=== PATIENT | female | born 1985 | race Caucasian/White ===

== ENCOUNTER 2018-01-18 10:46 | Emergency (ER) | payer SELFPAY ==
[2018-01-18] MEDS ORDERED: ONDANSETRON 4 MG TAB.RAPDIS PO ONE (11:33)
[2018-01-18] MEDS ORDERED: MORPHINE SULFATE 10 MG/ML INJ IM ONE (11:33)
--- NOTE | 2018-01-18 11:35 | ER Document Report ---
ED General - General Chief Complaint: Flank Pain Stated Complaint: BACK PAIN Time Seen by Provider: 01/18/18 10:58 Mode of Arrival: Ambulatory Information source: Patient, [facility] Records Notes: 32-year-old female with migraine headaches, IBS presents with complaint of right flank pain and dysuria that started 2 days prior to arrival. Patient describes the flank pain as a dull aching pain with intermittent worsening of pain. Patient has had associated nausea without vomiting. Patient admits to dysuria but denies hematuria, abdominal pain, fever, chance of , vaginal discharge. Patient does report that she had a history of pyelonephritis while . TRAVEL OUTSIDE OF THE [place] IN LAST 30 DAYS: No - HPI Onset: Other Onset/Duration: Gradual, Intermittent Quality of pain: Achy Severity: Mild Pain Level: 2 Associated symptoms: Chills, Nausea, Sweating. denies: Diarrhea, Fever, Vomiting, Shortness of breath Exacerbated by: Denies Relieved by: Denies Similar symptoms previously: Yes Recently seen / treated by doctor: No - Related Data Allergies/Adverse Reactions: divalproex sodium [From Depakote] Allergy (Verified 01/18/18 10:48) Past Medical History - General Information source: Patient, [facility] Records - Social History Smoking Status: Current Every Day Smoker Cigarette use (# per day): Yes - 10 Smoking Education Provided: Yes - Smoking cessation counseling was provided for 4 minutes at the bedside Frequency of alcohol use: Occasional Drug Abuse: Marijuana Lives with: Spouse/Significant other Family History: Reviewed & Not Pertinent Patient has suicidal ideation: No Patient has homicidal ideation: No Neurological Medical History: Reports: Hx Migraine Renal/ Medical History: Denies: Hx Peritoneal Dialysis Past Surgical History: Reports: Hx Section - x3, Hx Cholecystectomy, Hx Tonsillectomy Review of Systems - Review of Systems Constitutional: Chills EENT: denies: Blurred vision, Throat pain Cardiovascular: denies: Chest pain, Palpitations, Dizziness Respiratory: denies: Cough, Short of breath Gastrointestinal: Nausea. denies: Abdominal pain, Vomiting Genitourinary: Dysuria, Flank pain Female Genitourinary: denies: Vaginal discharge Musculoskeletal: Back pain Skin: denies: Rash Hematologic/Lymphatic: denies: Easy bruising Neurological/Psychological: denies: Confusion, Headaches -: Yes All other systems reviewed and negative Physical Exam - Vital signs Vitals: Temp Pulse Resp BP Pulse Ox 98.6 F 88 16 118/70 100 01/18/18 10:59 01/18/18 10:59 01/18/18 10:59 01/18/18 10:59 01/18/18 10:59 Interpretation: Normal. No: Hypotensive, Febrile - Notes Notes: PHYSICAL EXAMINATION: GENERAL: Well-appearing, well-nourished and in no acute distress. HEAD: Atraumatic, normocephalic. EYES: Pupils equal round and reactive to light, extraocular movements intact, conjunctiva are normal. ENT: Nares patent, oropharynx clear without exudates. Moist mucous membranes. NECK: Normal range of motion, supple without lymphadenopathy LUNGS: Breath sounds clear to auscultation bilaterally and equal. No wheezes rales or rhonchi. HEART: Regular rate and rhythm without murmurs ABDOMEN: Soft, nontender, nondistended abdomen. No guarding, no rebound. No masses appreciated. Female : deferred Musculoskeletal: Normal range of motion, no pitting or edema. No cyanosis. Right CVA tenderness NEUROLOGICAL: Cranial nerves grossly intact. Normal speech, normal gait. Normal sensory, motor exams PSYCH: Normal mood, normal affect. SKIN: Warm, Dry, normal turgor, no rashes or lesions noted. Course - Re-evaluation Re-evalutation: 01/18/18 12:26 Laboratory 01/18/18 01/18/18 01/18/18 10:48 10:48 10:48 WBC 5.7 RBC 4.45 Hgb 14.7 Hct 42.3 MCV 95 MCH 33.0 MCHC 34.8 RDW 11.6 Plt Count 213 Seg Neutrophils % 60.6 Lymphocytes % 29.4 Monocytes % 9.2 Eosinophils % 0.3 Basophils % 0.5 Absolute Neutrophils 3.5 Absolute Lymphocytes 1.7 Absolute Monocytes 0.5 Absolute Eosinophils 0.0 Absolute Basophils 0.0 Sodium 140.7 Potassium 4.2 Chloride 107 Carbon Dioxide 25 Anion Gap 9 BUN 12 Creatinine 0.75 Est GFR ( Amer) > 60 Est GFR (Non-Af Amer) > 60 Glucose 104 Calcium 9.7 Total Bilirubin 1.4 H Direct Bilirubin 0.5 H Neonat Total Bilirubin Not Reportable Neonat Direct Bilirubin Not Reportable Neonat Indirect Bili Not Reportable AST 12 L ALT 15 Alkaline Phosphatase 45 Total Protein 7.4 Albumin 4.6 Urine Color STRAW Urine Appearance CLEAR Urine pH 5.0 Ur Specific Harrod 1.005 Urine Protein NEGATIVE Urine Glucose (UA) NEGATIVE Urine Ketones NEGATIVE Urine Blood NEGATIVE Urine Nitrite NEGATIVE Urine Bilirubin NEGATIVE Urine Urobilinogen NEGATIVE Ur Leukocyte Esterase NEGATIVE Urine WBC (Auto) 0 Urine Bacteria (Auto) TRACE Squamous Epi Cells Auto 1 Urine Mucus (Auto) RARE Urine Ascorbic Acid NEGATIVE Urine HCG, Qual NEGATIVE Abdomen/Pelvis CT 01/18/18 00:00 IMPRESSION: Wedge-shaped areas of hypoattenuation within the kidneys, concerning for pyelonephritis. Correlate with patient's urinalysis. 32-year-old female with migraine headaches, IBS presents with complaint of right flank pain and dysuria that started 2 days prior to arrival. Patient describes the flank pain as a dull aching pain with intermittent worsening of pain. Patient has had associated nausea without vomiting. Patient admits to dysuria but denies hematuria, abdominal pain, fever, chance of , vaginal discharge. Patient does report that she had a history of pyelonephritis while . Vital signs reviewed upon arrival and patient is afebrile, normotensive and not tachycardic. She does not appear toxic or dehydrated. Exam is significant for right CVA tenderness. CBC, CMP, UA are unremarkable. CT with IV and p.o. contrast was obtained and read as concerning for bilateral pyelonephritis with recommendation to correlate with the patient' s urinalysis which is without blood, without leuk esterase or WBCs. Patient has not had any fever, nausea, vomiting which I would expect to find in a patient with pyelonephritis. Because of the patient's history of interstitial cystitis I have sent a urine culture and started her on Keflex. 01/18/18 12:32 Patient reevaluated after receiving IM morphine, p.o. Zofran. She is still in significant pain and states now she has right upper quadrant pain. Patient does not have a gallbladder. Lipase added. CT of the abdomen and pelvis with IV and p.o. contrast ordered. On reevaluation patient resting more comfortably. Patient was evaluated and treated as appropriate for the patient' s presenting symptoms and complaint, with consideration of any critical or life threatening conditions that may be associated with their obtained history and exam as noted above. All results were discussed with patient and patient provided a copy of her CAT scan report. Patient provided the opportunity to ask questions, and express concerns. Patient was educated on treatments based on their presumed diagnosis as noted above. At this time we will discharge the patient with return precautions and follow-up recommendations. Verbal discharge instructions given a the bedside. Medication warnings reviewed. Patient is in agreement with this plan and has verbalized understanding of return precautions. After careful consideration I feel that that patient can be safely discharged from the emergency department, they were advised to followup with a primary care physician in 2-3 days. Dictation on this chart was performed using voice recognition software and may result in unintended grammatical, spelling, syntax or errors. 01/19/18 09:09 - Vital Signs Vital signs: Temp Pulse Resp BP Pulse Ox 97.8 F 69 16 103/52 L 99 01/18/18 17:03 01/18/18 17:03 01/18/18 17:03 01/18/18 17:03 01/18/18 17:03 - Laboratory Result Diagrams: 01/18/18 10:48 01/18/18 10:48 Laboratory results interpreted by me: 01/18/18 10:48 Total Bilirubin 1.4 H Direct Bilirubin 0.5 H AST 12 L - Diagnostic Test Radiology reviewed: Image reviewed, Reports reviewed Discharge - Discharge Clinical Impression: Right flank pain, Dysuria, Interstitial cystitis Condition: Good Disposition: HOME, SELF-CARE Instructions: Flank Pain ([facility]), Pain Medication Injection ([facility]) Additional Instructions: Your urinalysis did not show any evidence of infection. Your lab work was all within normal limits. Your CAT scan suggests possible pyelonephritis but without a urinary tract infection, elevation in your white count, fever I feel this is unlikely. I have sent your urine for culture and this will result in a few days. I will start you on Keflex due to your interstitial cystitis and significant discomfort. Follow up with your [id number] hours for further care or return to the ED IMMEDIATELY if symptoms worsen or you have any concerns. If you cannot afford to follow up with your primary care physician a list of low cost clinics have been provided at the end of your discharge papers as well. Most prescribed medications have multiple side effects. The safest thing to do is when filling your prescription speak to your pharmacist regarding possible interactions with your normal home medications and over the counter medications such as Ibuprofen, Tylenol, Benadryl. If you experience any symptoms that cause you discomfort or concern you should discontinue the medication immediately and return to the emergency room or call your primary care physician. Prescriptions: Cephalexin Monohydrate [Keflex 500 mg Capsule] 500 mg PO BID 5 Days #10 capsule Hydrocodone/Acetaminophen [[place] 5-325 mg Tablet] 1 tab PO Q6H #10 tablet
[2018-01-18 11:52] LABS: ABSOLUTE LYMPHOCYTES (AUTO) 1.7 10^3/uL (0.5-4.7); ABSOLUTE MONOCYTES (AUTO) 0.5 10^3/uL (0.1-1.4); ABSOLUTE NEUT (AUTO) 3.5 10^3/uL (1.7-8.2); BASOPHILS % (AUTO) 0.5 % (0-2); EOSINOPHILS % (AUTO) 0.3 % (0-6); HEMATOCRIT 42.3 % (36.0-47.0); HEMOGLOBIN 14.7 g/dL (12.0-15.5); LYMPHOCYTES % (AUTO) 29.4 % (13-45); MEAN CORPUSCULAR HGB CONC 34.8 g/dL (32.0-36.0); MEAN CORPUSCULAR VOLUME 95 fl (80-97); MONOCYTES % (AUTO) 9.2 % (3-13); PLATELET COUNT 213 10^3/uL (150-450); RED BLOOD COUNT 4.45 10^6/uL (3.72-5.28); RED CELL DISTRIBUTION WIDTH 11.6 % (11.5-14.0); SEGMENTED NEUTROPHILS % (AUTO) 60.6 % (42-78); TOTAL CELLS COUNTED % (AUTO) 100 %; WHITE BLOOD COUNT 5.7 10^3/uL (4.0-10.5)
[2018-01-18 12:02] LABS: APPEARANCE,URINE CLEAR; BILIRUBIN,URINE NEGATIVE (NEGATIVE); COLOR,URINE STRAW; GLUCOSE, URINE NEGATIVE (NEGATIVE); KETONES,URINE NEGATIVE (NEGATIVE); LEUKOCYTE ESTERASE,URINE NEGATIVE (NEGATIVE); NITRITE,URINE NEGATIVE (NEGATIVE); PROTEIN,URINE NEGATIVE (NEGATIVE); URINE SPECIFIC GRAVITY 1.005; UROBILINOGEN,URINE NEGATIVE mg/dL (<2.0)
[2018-01-18 12:17] LABS: ALANINE AMINOTRANSFERASE 15 U/L (9-52); ALBUMIN 4.6 g/dL (3.5-5.0); ALKALINE PHOSPHATASE 45 U/L (38-126); ANION GAP 9 (5-19); ASPARTATE AMINO TRANSFERASE 12 U/L (14-36); BILIRUBIN,DIRECT 0.5 mg/dL (0.0-0.4); BILIRUBIN,TOTAL 1.4 mg/dL (0.2-1.3); BLOOD UREA NITROGEN 12 mg/dL (7-20); CALCIUM 9.7 mg/dL (8.4-10.2); CARBON DIOXIDE 25 mmol/L (22-30); CHLORIDE 107 mmol/L (98-107); GLUCOSE 104 mg/dL (75-110); POTASSIUM 4.2 mmol/L (3.6-5.0); SODIUM 140.7 mmol/L (137-145); TOTAL PROTEIN 7.4 g/dL (6.3-8.2)
[2018-01-18] MEDS ORDERED: HYDROMORPHONE HCL INJ/PF 2 MG/ML AMPULE IV ONE (12:28)
[2018-01-18] MEDS ORDERED: HYDROMORPHONE HCL INJ/PF 2 MG/ML AMPULE IV PRN (15:01)
--- NOTE | 2018-01-18 16:07 | RADIOLOGY REPORT (SQ) ---
EXAM DESCRIPTION: CT ABD/PELVIS WITH IV COMPLETED DATE/TIME: 01/18/2018 3:37 pm REASON FOR STUDY: Right-sided abdominal pain COMPARISON: None. TECHNIQUE: CT scan of the abdomen and pelvis performed using helical scanning technique with dynamic intravenous contrast injection. No oral contrast. Images reviewed with lung, soft tissue, and bone windows. Reconstructed coronal and sagittal MPR images reviewed. Delayed images for evaluation of the urinary system also acquired. All images stored on PACS. All CT scanners at this facility use dose modulation, iterative reconstruction, and/or weight based d osing when appropriate to reduce radiation dose to as low as reasonably achievable (ALARA). [facility]: Dose Right [facility]: CareDose [facility]: Dose Right [facility]: Teradose 4D [facility]: Baeta CONTRAST TYPE AND DOSE: contrast/concentration: Isovue 350.00 mg/ml; Total Contrast Delivered: 51.0 ml; Total Saline Delivered: 65.0 ml 51 mL IV of the choose 5 RENAL FUNCTION: BUN 12 creatinine 0.75 RADIATION DOSE: CT Rad equipment meets quality standard of care and radiation dose reduction techniq ues were employed. CTDIvol: 4.8 - 4.9 mGy. DLP: 468 mGy-cm.. LIMITATIONS: None. FINDINGS: LOWER CHEST: No significant findings. No nodules or infiltrates. LIVER: Normal size. No masses. No dilated ducts. SPLEEN: Normal size. No focal lesions. PANCREAS: No masses. No significant calcifications. No adjacent inflammation or peripancreatic fluid collections. Pancreatic duct not dilated. GALLBLADDER: Surgically absent. ADRENAL GLANDS: No significant masses or asymmetry. RIGHT KIDNEY AND URETER: No solid masses. No significant calcifications. No hydronephrosis or hyd roureter. Ill-defined wedge-shaped area hyper attenuation of the inferior pole of the right kidney. LEFT KIDNEY AND URETER: No solid masses. No significant calcifications. No hydronephrosis or hydr oureter. Ill-defined wedge-shaped area of hypoattenuation the inferior pole of the left kidney. AORTA AND VESSELS: No aneurysm. No dissection. Renal arteries, SMA, celiac without stenosis. RETROPERITONEUM: No retroperitoneal adenopathy, hemorrhage or masses. BOWEL AND PERITONEAL CAVITY: No dilated loops of bowel. No masses or inflammatory changes. Trace pe lvic free fluid, physiologic in a menstruating female. No intraperitoneal free air. APPENDIX: Normal. PELVIS: No mass. No free fluid. Normal bladder. Bilateral tubal ligation clips. ABDOMINAL WALL: No masses. No hernias. BONES: No significant or acute findings. OTHER: No other significant finding. IMPRESSION: Wedge-shaped areas of hypoattenuation within the kidneys, concerning for pyelonephritis. Correlate with patient's urinalysis. TECHNICAL DOCUMENTATION: JOB ID: [id number] Quality ID # [id number]: Final reports with documentation of one or more dose reduction techniques (e.g., Au tomated exposure control, adjustment of the mA and/or kV according to patient size, use of iterative reconstruction technique) 2010 [employer]- All Rights Reserved Reading location - IP/workstation name: [email or web address]
[2018-01-18] MEDS ORDERED: CEPHALEXIN 500 MG CAPSULE PO ONE (16:32)
[2018-01-18 17:07] VITALS: BP 103/52
== END 2018-01-18 17:07 | disposition home or self-care (01) ==
LOC: ER 10:46
DX: N30.10 Interstitial cystitis (chronic) without hematuria (principal); R10.9 Unspecified abdominal pain; R30.0 Dysuria; M54.9 Dorsalgia, unspecified; R11.0 Nausea; F17.200 Nicotine dependence, unspecified, uncomplicated; F17.210 Nicotine dependence, cigarettes, uncomplicated
CPT/HCPCS: 96376; 99284; 96372; 96374; 36415; 87086; 83690; 85025; 81025; 80053; 81001; 74177; S0119; J2270; J1170